=== PATIENT | male | born 2000 | race Hispanic/Latino ===

== ENCOUNTER 2024-10-19 11:59 | Emergency (ER) | payer BC, SELFPAY ==
[2024-10-19 12:05] VITALS: BP 126/89
[2024-10-19 13:10] VITALS: BMI 21.2
--- NOTE | 2024-10-19 13:57 | ED.GENMED ---
History of Present Illness
General
Chief Complaint: Musculo-Skeletal Complaint
Source: patient
Time Seen by Provider: 10/19/24 13:47
History of Present Illness
History of Present Illness:
Note:
CHIEF COMPLAINT(S)
Pain in the right hand after punching a solid surface.
HISTORY OF PRESENT ILLNESS
The patient is a 23-year-old male who presented to the emergency department after sustaining a right hand injury. He reports a history of waking up feeling agitated and subsequently punched the floor in frustration earlier today. The patient
describes the pain as primarily located over the area where the impact occurred, specifically at the site of the fifth metacarpal, which is commonly referred to as a boxers fracture. Despite this, he did not experience any loss of function in the
hand but reports significant tenderness and pain at the affected site. There is no history of prior trauma to the hand, and he denies any other associated symptoms or systemic issues.
PHYSICAL EXAM
General: Alert, no acute distress.
Skin: Warm, dry, no visible skin lesions or abrasions noted at injury site.
Head: Normocephalic, atraumatic.
Neck: Supple, trachea midline.
Eyes, Ears, Nose, Mouth, and Throat: Oral mucosa moist.
Cardiovascular: Normal peripheral perfusion, no edema.
Respiratory: Respirations are non-labored.
Gastrointestinal: Abdomen nondistended.
Back: Normal range of motion, normal alignment.
Musculoskeletal: Moderate to significant tenderness over the fifth metacarpal on the right hand. No malrotation of the fifth digit noted. Normal distal capillary refill observed. Wrist and elbow are non-tender, and right upper extremity otherwise
unaffected.
Neurological: Alert and oriented to person, place, time, and situation, no focal neurological deficit observed.
Psychiatric: Cooperative, appropriate mood & affect.
PROBLEM LIST
Acute problems:
1. Fracture of the fifth metacarpal (suspected boxers fracture)
PLAN
1. Immobilization of the right hand with a splint to stabilize the fracture.
2. Referral and follow-up with an orthopedic hand specialist for further evaluation and management.
3. Education provided on the potential need for a splint or cast for approximately four to six weeks.
4. Discussion about the rare possibility of requiring surgical intervention involving pinning if healing does not progress adequately.
DIFFERENTIAL DIAGNOSIS
The Differential Diagnosis includes, in no particular order and is not limited to:
1. Fifth metacarpal fracture (Boxers fracture)
2. Soft tissue contusion
3. Bone bruise
4. Metacarpal ligamentous injury
5. Joint dislocation
6. Tendon injury or rupture
7. Hand sprain
8. Carpal bone fracture
9. Distal radius fracture
10. De Quervains tenosynovitis
Disposition:
SUMMARY OF ENCOUNTER
A 23-year-old male presented to the emergency department after injuring his right hand by punching the floor, which resulted in a suspected fifth metacarpal fracture or boxers fracture. Clinical evaluation revealed moderate to significant tenderness
over the fifth metacarpal with no malrotation of the fifth digit. The decision was made to immobilize the hand using an ulnar gutter splint and arrange for an orthopedic follow-up to ensure proper healing and management. The examination confirmed
intact neurovascular status in the affected hand.
PLAN
1. Immobilization of the right hand with an ulnar gutter splint to stabilize the suspected fracture.
2. Referral to orthopedic services for outpatient follow-up and further evaluation.
3. Provide patient education regarding the potential need for a splint or cast for approximately four to six weeks and discuss the rare possibility of surgical intervention if healing is not adequate.
PATIENT EDUCATION AND COUNSELING
The patient was educated on the importance of keeping the splint in place, the potential duration of immobilization, monitoring for any signs of complications, and the importance of timely follow-up with orthopedics. Additionally, the possibility of
surgical intervention was discussed in case the fracture does not heal properly.
FOLLOW-UP INSTRUCTIONS
The patient is instructed to schedule an outpatient follow-up appointment with an orthopedic hand specialist to evaluate the healing of the suspected fracture and determine if further intervention is necessary.
MEDICAL DECISION MAKING
-Complexity of Data Reviewed: Differential diagnosis included fifth metacarpal fracture (boxers fracture), soft tissue contusion, bone bruise, metacarpal ligamentous injury, joint dislocation, tendon injury or rupture, hand sprain, carpal bone
fracture, distal radius fracture, and De Quervains tenosynovitis.
-Risk:
Prescription medication was considered but not prescribed at this time.
Consideration of Admission/Observation: Escalation of care including admission/observation was considered given the complexity and risk of the patients presenting complaint, exam findings, and/or their underlying comorbidities. However, ultimately,
I feel the patient is safe for outpatient management with close follow-up. Reasoning: Work-up is reassuring, does not reveal any acute life/organ-threatening processes, the patients symptoms are well controlled upon reevaluation, reexamination is
reassuring, vitals are stable, patient agreeable with discharge, reliable for follow-up.
DIAGNOSIS
Fracture of the fifth metacarpal (Boxers fracture) - ICD-10: S62.306A
Phy Exam
Physical Exam
Physical Exam:
.
Course
Orders/Labs/Results
Orders:
Orders
10/19/24 12:00
Hand, Left 3 View [CR Hand - Left Min 3 Views] Urgent
Comment:
Reason For Exam: pain, trauma
Vital Signs
Initial and Last Documented VS:
Initial Vital Signs
Temp Pulse Resp BP Pulse Ox
98 F 59 16 126/89 100
10/19/24 12:10/19/24 12:10/19/24 12:10/19/24 12:10/19/24 12:05
Last Documented Vital Signs
Temp Pulse Resp BP Pulse Ox
98 F 59 16 126/89 100
10/19/24 12:10/19/24 12:10/19/24 12:10/19/24 12:10/19/24 12:05
*Pulse Oximetry
SaO2: 100
Oxygen Mode of Delivery: Room air
Patient hypoxic: no
*Critical Care Note
Total Time (30-74mins, 75-104mins- exclusive of procedures): Not Applicable
ED Attending Note
-
Portions of this chart may have been created with voice recognition software.� Occasional wrong word or��sound alike� substitutions may have occurred due to the inherent limitations of voice recognition software.
Discharge Plan
Departure
Patient Disposition: Home (Routine Discharge)
Date of Disposition: 10/19/24
Time of Disposition: 13:58
Patient with high blood pressure during this ER visit?: No
Discharge Problem:
Closed fracture of 5th metacarpal
Instructions: Hand fracture
Referrals:
Irene Isbell DO [Family Provider, Internal Medicine]
Don Teran MD [Active, Orthopedics]
Activity Restrictions/Additional Instructions:
Please see orthopedics in the next 3 to 5 days for follow-up and reevaluation. Return today for worsening pain, discoloration of the fingers or any other concerns. Please aggressively ice your hand and use ibuprofen every 6 hours for pain and
swelling.
Interventions
Interventions:
*Risk Screen - Suicide Last Done: 10/19/24 12:08
*General Assessment Last Done: 10/19/24 13:10
*Neglect/Abuse Screening Last Done: 10/19/24 12:08
*ED- Fall Risk Assessment Last Done: 10/19/24 13:10
*ED COVID-19 Vaccine History Last Done: 10/19/24 13:10
ED-Musculoskeletal Assessment Last Done: 10/19/24 13:10
Discharge Date and Time
Print Language: EQUATORIAL GUINEAN
== END 2024-10-19 14:34 | disposition home or self-care (01) ==
LOC: EMR 11:59
PROVIDERS: EMERGENCY PHYSICIAN Emergency Medicine; FAMILY PHYSICIAN Internal Medicine
DX: S62.327A Displaced fracture of shaft of fifth metacarpal bone, left hand, initial encounter for closed fracture (principal); W22.09XA Striking against other stationary object, initial encounter
CPT/HCPCS: 99283; 73130